=== PATIENT | female | born 1955 | race African-American/Black ===

== ENCOUNTER 2024-08-14 15:44 | Outpatient (CLI) | payer MEDICARE, SELFPAY ==
--- NOTE | ~2024-08-14 | MM_ITS ---
EXAMINATION: MM screening montse BI w deb HISTORY: Screening TECHNIQUE: Craniocaudal and mediolateral oblique 3-D tomosynthesis images were obtained and synthetic 2-D images were generated. CAD analysis was submitted and interpreted. COMPARISON: 09/14/2016 BREAST PARENCHYMAL COMPOSITION: Not dense: There are scattered areas of fibroglandular density. FINDINGS: There is a new cluster of indeterminate calcifications in the upper outer quadrant of the l eft breast, possibly skin calcifications. The right breast is stable without evidence for malignancy. There are bilateral inverted nipples. IMPRESSION: 1. New clustered indeterminate left breast calcifications. 2. Magnification views are recommended. BI-RADS Category 0: Incomplete: Needs additional imaging evaluation. Reviewed, dictated and finalized at location B. E INSPECTOR
== END 2024-08-14 15:45 | disposition home or self-care (01) ==
LOC: MICIMG 15:44
PROVIDERS: PCP Family Medicine; Visit Provider Obstetrics & Gynecology
DX: Z12.31 Encounter for screening mammogram for malignant neoplasm of breast (principal); R92.8 Other abnormal and inconclusive findings on diagnostic imaging of breast
CPT/HCPCS: 77063; 77067

== ENCOUNTER 2025-02-20 11:48 | Outpatient (CLI) | payer MEDICARE, SELFPAY ==
--- NOTE | 2025-02-20 12:13 | ECG_ITS ---
Test Date: 2025-02-20 12:20:16 Measurements Intervals [place] Rate: 56 P: 52 MI: 226 QRS: 44 QRSD: 84 T: 78 QT: 405 QTc: 393 Interpretive Statements SINUS BRADYCARDIA WITH SINUS ARRHYTHMIA WITH FIRST DEGREE AV BLOCK POSSIBLE LEFT ATRIAL ENLARGEMENT BORDERLINE ST-T WAVE ABNORMALITY- HIGH LATERAL LEADS BASELINE ARTIFACT- II, III, AVF BORDERLINE ECG No previous ECG available for comparison Electronically Signed On 02-20-2025 12:27:55 CDT by Waqas Prater D.O.
== END 2025-02-20 11:49 | disposition home or self-care (01) ==
PROVIDERS: PCP Family Medicine; Visit Provider Nurse Anesthetist, Certified Registered
DX: Z01.818 Encounter for other preprocedural examination (principal); I49.8 Other specified cardiac arrhythmias; I44.0 Atrioventricular block, first degree
CPT/HCPCS: 93005

== ENCOUNTER 2025-07-06 10:45 | Outpatient (CLI) | payer MEDICARE, MEDICAID, SELFPAY ==
--- NOTE | ~2025-07-06 | XR_ITS ---
EXAMINATION: XR shoulder RT min 2V, 07/06/2025 11:07 PACKER INSULATION HISTORY: RT SHOULDER PAIN; INJURY IN JANUARY COMPARISON: No comparisons available. Findings: No acute fracture or malalignment. No significant degenerative changes. Soft tissues unremarkable. Impression: No acute fracture or malalignment. Reviewed, dictated and finalized at location P. ER INSULATION Impression: No acute fracture or malalignment.
[2025-07-06 11:04] LABS: Hematocrit 38.0 % (37.0-47.0); Hemoglobin 12.2 g/dL (12.0-15.0); Immature Granulocyte Percent A 0.3 % (0-0.5); Lymphocytes Absolute Auto 2.38 K/mm3 (0.9-3.2); Mean Corpuscular HGB Conc 32.1 g/dl (32-36); Mean Corpuscular Hemoglobin 27.5 pg (26-34); Mean Corpuscular Volume 85.6 fl (80-100); Nucleated Red Blood Cells Absolute Auto 0.000 K/mm3 (0.0-0.012); Nucleated Red Blood Cells Perc 0.0 % (0.0-0.2); Platelet Count Result 276 k/mm3 (150-375); Red Blood Count 4.44 M/mm3 (4.2-5.4); White Blood Count 7.1 K/mm3 (4.5-10.0)
[2025-07-06 11:15] LABS: Hemoglobin A1C 5.4 % (<5.7)
[2025-07-06 11:21] LABS: Alanine Aminotransferase 14 U/L (6-35); Albumin Level 4.1 g/dL (3.5-5.1); Alkaline Phosphatase 60 U/L (38-126); Anion Gap 5 mmol/L (4-12); Aspartate Amino Transferase 24 U/L (14-36); Bilirubin,Total 0.5 mg/dL (0.2-1.3); Blood Urea Nitrogen 16 mg/dL (7-17); Calcium 9.2 mg/dL (8.4-10.2); Carbon Dioxide 29 mmol/L (22-30); Chloride 105 mmol/L (98-107); Cholesterol 208 mg/dL (0-200); Estimated Glomerular Filt Rate > 60; Glucose 83 mg/dL (65-110); HDL Direct 68 mg/dL; Potassium 4.1 mmol/L (3.4-5.0); Sodium 139 mmol/L (137-145); Total Protein 7.9 g/dL (6.3-8.2); Triglycerides 100 mg/dL (<150)
--- OUTSIDE RECORDS SUMMARY | 2025-07-06 11:31 | XMS_ITS | Clinical Summary ---
Author Organization [facility] Address Formerly [facility], [facility] [place] [address] Care Team Providers Care Construction Equipment Operator Name Role Phone None, Provider Primary Care Provider Unavaila ble Social History Tobacco Use Types Packs/Day Years Used Date Smoking Tobacco: Never Assessed Comments Unknown Sex and Gender Information Value Date Recorded Sex Assigned at Not on file Legal Sex Female 6:38 PM CDT Gender Identity Not on file Sexual Orientation Not on file Last Filed Vital Signs Vital Sign Reading Time Taken Comments Blood Pressure 125/59 05/07/2017 11:06 AM CDT Pulse 51 05/07/2017 11:06 AM CDT Temperature - - Respiratory Rate - - Oxygen Saturation - - Inhaled Oxygen Concentration - - Weight 114 kg (251 lb 6.1 oz) 05/07/2017 11:06 A M CDT Height 170.2 cm (5' 7) 05/07/2017 11:06 AM CDT Body Mass Index 39.37 05/07/2017 11:06 AM CDT Plan of Treatment Health Maintenance Due Date Last Done Comments Colorectal Cancer Screening Colonoscopy (10 Years) 1954 Hepatitis C 1972 DTaP, Tdap and Td Vaccines ( 1 - Tdap) 1973 Mammogram Screening 1994 Pneumococcal Vaccine: 50+ Years (1 of 1 - PCV) 2004 Zoster Vaccines (1 of 2) 2004 Annual Medicare Wellness Visit 2019 Dexa Scan (General) 2019 COVID-19 Vaccine (3 - 2024-2 6 season) 2025 02/24/2021, 02/03/2021 Influenza Adult (#1) 2025 RSV Immunization or 60+ Years (1 - 1-dose 75+ series) 2029 Hepatitis A Vaccines Aged Out No long er eligible based on patient's age to complete this topic Meningococcal B Vaccine Aged Out No l onger eligible based on patient's age to complete this topic Meningococcal Vaccine Aged Out No vincent zane eligible based on patient's age to complete this topic RSV Immunizations Under 20 Months Aged Out No longer eligible b ased on patient's age to complete this topic Insurance UHC MEDICARE Care Teams Construction Equipment Operator Relationship Specialty Start Date End Date None, Provider, PCP - General 06/21/21
--- OUTSIDE RECORDS SUMMARY | 2025-07-06 11:31 | XMS_ITS | Clinical Summary ---
Author Organization [facility] Address [address] [place] [address] Phone Care Team Providers Care Bone Drier Operator Name Role Phone Christina Ramirez MD Primary Care Provider [phone] Allergies Active Allergy Reactions Criticality Noted Date Comments Loratadine Dizziness Low 02/08/2021 Reaction: Dizziness, Pseudoephedrine Dizziness Low 02/08/2021 Reaction: Dizziness, Medications atorvastatin (LIPITOR) 20 mg tablet TAKE 1 TABLET BY MOUTH ONCE DAILY 11/27/2020 Active ergocalciferol (VITAMIN D2) 50,000 unit capsule TAKE 1 CAPSULE BY MOUTH ONCE A WEEK 11/27/2020 Active traMADoL (ULTRAM) 50 mg tablet 01/12/2021 Active tiZANidine (ZANAFLEX) 4 mg Tablet TAKE 1 TO 2 TABLETS BY MOUTH EVERY DAY AT BEDTIME 12/21/2020 Active nystatin (MYCOSTATIN) 100,000 unit/mL suspension SWISH AND SWALLOW 5ML BY MOUTH FOUR TIMES DAILY FOR 14 DAYS 12/08/2020 Active predniSONE (DELTASONE) 10 mg tablet TAKE 1 TABLET BY MOUTH NEEDED 12/13/2020 Active gabapentin (NEURONTIN) 300 mg capsule TAKE 1 CAPSULE BY MOUTH ONCE DAILY AT BEDTIME 12/06/2020 Active Active Problems Problem Noted Date Diagnosed Date Abnormality of left breast on screening mammogra m 02/15/2021 Social History Tobacco Use Types Packs/Day Years Used Date Smoking Tobacco: Former Cigarettes Q uit: 02/08/2010 Alcohol Use Standard Drinks/Week Comments Never 0 (1 standard drink = 0.6 oz pur e alcohol) Comments Unknown Sex and Gender Information Value Date Recorded Sex Assigned at Not on file Legal Sex Female 9:51 AM CDT Gender Identity Not on file Sexual Orientation Not on file Last Filed Vital Signs Vital Sign Reading Time Taken Comments Blood Pressure 141/87 02/08/2021 10:47 AM CDT Pulse 59 02/08/2021 10:47 AM CDT Temperature - - Respiratory Rate - - Oxygen Saturation - - Inhaled Oxygen Concentration - - Weight 115.2 kg (254 lb) 02/18/2021 9:00 AM CDT Height 170.2 cm (5' 7) 02/18/2021 9:00 AM CDT Body Mass Index 39.78 02/18/2021 9:00 AM CDT Plan of Treatment Health Maintenance Due Date Last Done Comments DTAP/TDAP/TD VACCINES (1 - Tdap) 1973 COLORECTAL SCREENING 1999 Colorectal Cancer Screening 1999 FIT-DNA Q 3 years 1999 FIT/FOBT Q 1 year 1999 Flex Sig/CT Colonography Q 5 years 1999 PNEUMOCOCCAL VACCINE 50+ YEA RS (1 of 1 - PCV) 2004 ZOSTER VACCINE (1 of 2) 2004 OSTEOPOROSIS SCREENING 2019 BREAST CANCER SCREENING 01/13/2022 01/13/2021, 12/31 INFLUENZA VACCINE (#1) 2025 RSV VACCINE (60+ or ) (1 - 1-dose 75+ series) 2029 Procedures Procedure Name Priority Date/Time Associated Diagnosis Comments MAMMO DIAG UNI LEFT 3D LENO W OR WO CAD Routine 01/13/2021 from Last 3 Months or Most Recently Relevant to Health Maintenance Results * MAMMO DIAG UNI LEFT 3D LENO W OR WO CAD (01/13/2021) Anatomical Region Laterality Modality Breast Left Mammography us Christina Ramirez MD MAMMO ORDERABLES Edited Result - Final from Last 3 Months or Most Recently Relevant to Health Maintenance Insurance [facility] [id number] Care Teams Bone Drier Operator Relationship Specialty Start Date End Date Christina Rmairez MD [address] [place] [address] PCP - General Family Practice 02/08/21
--- OUTSIDE RECORDS SUMMARY | 2025-07-06 11:31 | XMS_ITS | Clinical Summary ---
Author Organization [facility] Address [address] [place] [address] Care Team Providers Care Supervisor Data Processing Name Role Phone Christina Ramirez MD Primary Care Provider [phone] Allergies Active Allergy Reactions Criticality Noted Date Comments Loratadine Dizziness Reaction: Dizziness, Pseudoephedrine Dizziness Reaction: Dizziness, Medications ergocalciferol (VITAMIN D) 50,000 unit capsule Take 1 capsule (50,000 Units total) by mouth once a week States takes sometimes 1 Active gabapentin (NEURONTIN) 300 mg capsule Take 1 capsule (300 mg total) by mouth nightly as needed 1 Active rosuvastatin (CRESTOR) 5 mg tablet Take 1 tablet (5 mg total) by mouth 2 (two) times a week 2 Active tiZANidine (ZANAFLEX) 4 mg tablet TAKE 1 TO 2 TABLETS BY MOUTH EVERY DAY AT BEDTIME 1 Active traZODone (DESYREL) 100 mg tablet Take 1 tablet (100 mg total) by mouth nightly 2 Active Ozempic 0.25 mg or 0.5 mg(2 mg/1.5 mL) pen injector injection Inject 0.5 mg under the skin once a week 3 Active acetaminophen 500 mg capsuleIndicati ons:Pain Take 2 capsules (1,000 mg total) by mouth every 8 (eight) hours 90 tablet 3 Active aspirin 81 mg enteric coated tabletIndicatio ns:Deep Vein Thrombosis Prevention Take 1 tablet (81 mg total) by mouth 2 (two) times a day 60 tablet 3 Active Additional Information Patient taking differently:81 mg oralDaily, Indications: Deep Vein Thrombosis Prevention, Reported on 11/22/2022 triamcinolone (KENALOG) 0.1 % cream APPLY TOPICALLY TO RASH OF HANDS TWICE DAILY. 4 Active predniSONE (DELTASONE) 10 mg tablet TAKE 5 TABS BY MOUTH ONCE DAILY FOR 2 DAYS, THEN 4 TABS FOR 2 DAYS, THEN 3 TABS FOR 2 DAYS, THEN 2 TABS FOR 2 DAYS, THEN 1 TAB FOR 2 DAYS. 4 Active Active Problems Problem Noted Date Diagnosed Date Osteoarthritis of right hip, unspecified osteoarthritis type 10/09/2022 Class 3 severe obesity in adult 10/06/2022 Anxiety 10/06/2022 Asthma 10/06/2022 Primary osteoarthritis of right hip 09/13/2022 Overview (09/13/2022): Added automatically from request for surgery [id number] Chronic back pain 10/12/2021 Dobson's metatarsalgia 10/12/2021 Overweight 10/12/2021 Abnormality of left breast on screening mammogra m 02/15/2021 Degeneration of intervertebral disc of lumbar re gion 03/08/2017 Overview (03/08/2017): Lumbar DDD; Comments: MONTY 05/05/2016 - Assessment & Plan (07/24/2017 3:33 PM FORM TAMPING MACHINE OPERATOR): Patient is currently unemployed and is soon going to be without insurance. She cannot go to PT due to cost. She will be transitioning to IDPA soon. She has been approved from early SS withdrawal. She is also going to follow up with Dr. Baker, rheumatology in August. I started her on voltaren bid, flexeril at bedtime as needed and ultram prn for pain. She may need MRI in future if she is able to obtain IDPA. Assessment & Plan (03/08/2017 1:08 PM CDT): Will refer to Pain Management. Would like to try Neurontin at bedtime. Titrated up to 2 capsules at bedtime as tolerated. I also gave her a Lidoderm patch to try. If her insurance does not pay for this she may try [id number]. Mixed hyperlipidemia 03/08/2017 Assessment & Plan (07/24/2017 3:33 PM FORM TAMPING MACHINE OPERATOR): Renewed lipitor. Will be due for labs in August. Assessment & Plan (03/08/2017 12:14 PM CDT): Lipid abnormalities are improving with treatment. Continue lipitor Trigger ring finger 03/08/2017 Assessment & Plan (03/08/2017 12:23 PM CDT): Refer to ortho Obesity (BMI 30-39.9) 03/08/2017 Assessment & Plan (03/08/2017 1:07 PM CDT): Patient has had a gastric sleeve in the past. She has about weight loss pills. I talked to her about contrave . I did tell her that if she is on contrave that the tramadol effects may be block. I asked her to follow up in 3 months Immunizations Immunization Administration Dates Next Due Influenza, Unspecified 07/24/2017(Deferred: Chelsea ent Refused) Surgical History Surgery Date Site/Laterality Comments REDUCTION MAMMOPLASTY Breast Reduction SLEEVE GASTROPLASTY Gastric Sleeve VAGINAL HYSTERECTOMY Hysterectomy, vaginal FLUORO GUIDED ASPIRATION OR INJECTION LARGE JOINT RIGHT 10/25/2021 Right FLUORO GUIDED ASPIRATION OR INJECTION LARGE JOINT RIGHT 03/24/2022 Right Medical History Medical History Date Comments Anxiety disorder Anxiety Degeneration of intervertebr al disc of lumbar region Lumbar DDD; Comments: TWM - Obesity Prediabetes Family History Medical History Relation Name Comments Diabetes type II Daughter Diabetes me llitus type 2; Lymphoma Mother Lymphoma; Stroke Mother Stroke; Hypertension Other Family history of Hypertension; Leukemia Sister Leukemia; Anesthesia problems Neg Hx Relation Name Status Comments Daughter Father Mother Other Sister Social History Tobacco Use Types Packs/Day Years Used Date Smoking Tobacco: Former Cigarettes 1 974 - 2011 Passive Smoke Exposure: Past Smokeless Tobacco: Never Tobacco Cessation:Counseling Given: Not Answered OASIS D0700: Social Isolation Answer Da te Recorded Frequency of experiencing loneliness or isolatio n Never 11/08/2022 OASIS A1250: Transportation Answer Date Recorded Lack of Transportation (Medical) No 11/08/2022 Lack of Transportation (Non-Medical) No 11/08/2022 Patient Unable or Declines to Respond No 11/08/2022 OASIS B1300: Health Literacy Answer Elan e Recorded Frequency of needing help to read materials from doctor or pharmacy Rarely 11/08/2022 AUDIT-C Answer Date Recorded Q1: How often do you have a drink containing alcohol? Never 10/09/2022 Q2: How many drinks containi ng alcohol do you have on a typical day when you are drinking? Patient does not drink Q3: How often do you have si x or more drinks on one occasion? 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 Not on file Not on file Last Filed Vital Signs Vital Sign Reading Time Taken Comments Blood Pressure 124/76 11/08/2022 11:14 AM CDT Pulse 60 11/08/2022 11:14 AM CDT Temperature 36.2 C (97.1 F) 11/08/2022 11:14 AM CDT Respiratory Rate 18 11/08/2022 11:14 AM CDT Oxygen Saturation 96% 11/08/2022 11:14 AM CDT Inhaled Oxygen Concentration - - Weight 112.5 kg (248 lb) 10/17/2023 1:15 PM FORM TAMPING MACHINE OPERATOR Height 168.9 cm (5' 6.5) 10/17/2023 1:15 PM FORM TAMPING MACHINE OPERATOR Body Mass Index 39.43 10/17/2023 1:15 PM FORM TAMPING MACHINE OPERATOR Plan of Treatment Health Maintenance Due Date Last Done Comments Hepatitis C Screening 1955 Osteoporosis Screening-Bone Density Scan 1954 DTaP/Tdap/Td Vaccine (1 - Tdap) 1965 Hepatitis B Screening 1972 Pneumococcal vaccine 65+ (1 of 2 - PCV) 1973 Zoster Vaccine (1 of 2) 2004 Breast Cancer Screening-Mammogram 09/14/2017 017 Depression Screening 07/24/2018 07/24/2017, 03/08/20 17 Well Visit 65+ 2019 Fall Risk Assessment 10/10/2023 10/10/2022 Covid-19 Vaccine (4 - 2024-2 6 season) 2025 09/02/2021, 02/24/2021, 02/03/2021 Colon Cancer Screening-Colonoscopy 06/26/2026 06/26/2016, 06/26/2016, 06/26/2016 Colon Cancer Screening-CT Colonography Discontinued 06/26/2016, 06/26/2016, 06/26/2016 Colon Cancer Screening-DNA Stool Discontinued 06/26/2016, 06/26/2016, 06/26/2016 Colon Cancer Screening-FIT Discontinued 06/26, 06/26/2016, 06/26/2016 Colon Cancer Screening-Sigmoidoscopy Discontinue d 06/26/2016, 06/26/2016, 06/26/2016 Influenza Vaccine Discontinued Medical Devices Implanted Type Area Biomass Plant Manager Device Identifier Shelf Expiration Date Model / Serial / Lot [employer] G7 52mm Limit 3 Hole Hip E Hemisphere Offset Shell Acetabular [id number] - [id number] Implanted:Qty: 1 on 10/09/2022 by Brianne Larson MD at [facility] Right: Hip [employer] [id number] 04/26/2032 [id number] / / [id number] [employer] Trilogy 6.5mm 30mm Self Tap Acetabular Cortical Screw Bone [id number] - [id number] Implanted:Qty: 1 on 10/09/2022 by Brianne Larson MD at [facility] Right: Hip [employer] [id number] 06/29/2032 [id number] / / [id number] [employer] Trilogy 6.5mm 35mm Self Tap Screw Bone [id number] - [id number] Implanted:Qty: 1 on 10/09/2022 by Brianne Larson MD at [facility] Right: Hip [employer] [id number] 08/23/2032 [id number] / / [id number] [employer] G7 E1 42mm 2 Mobility S Liner Acetabular [id number] - [id number] Implanted:Qty: 1 on 10/09/2022 by Brianne Larson MD at [facility] Right: Hip [employer] [id number] 12/09/2030 [id number] / / [id number] [employer] Actis Collar Hip 4 High Offset Stem Femoral [id number] - [id number] Implanted:Qty: 1 on 10/09/2022 by Brianne Larson MD at [facility] Right: Hip [employer] [id number] 05/26/2032 [id number] / / [id number] [employer] 42mm 28mm Lumen Hip E Liner Acetabular Longevity Sterile Latex [id number] - [id number] Implanted:Qty: 1 on 10/09/2022 by Brianne Larson MD at [facility] Right: Hip [employer] [id number] 04/16/2027 [id number] / / [id number] [employer] Articul/Bin 28mm Cementless Hip +8.5mm /14 Taper Head Femoral Latex Free [id number] - [id number] Implanted:Qty: 1 on 10/09/2022 by Brianne Larson MD at [facility] Right: Hip [employer] 06/26/2027 [id number] / / [id number] Procedures Procedure Name Priority Date/Time Associated Diagnosis Comments MAMMOGRAPHY Routine 09/14/2016 COLONOSCOPY IMAGES 06/26/2016 from Last 3 Months or Most Recently Relevant to Health Maintenance Results * MAMMOGRAPHY (09/14/2016) Mammogram Normal us Historical Provider HEALTH MAINTENANCE Final Result * COLONOSCOPY IMAGES (06/26/2016) Anatomical Region Laterality Modality Other Narrative 06/26/2016 Ordered by an unspecified provider. us Historical Provider MD MAJOR PROCEDURE ORDERABLES F inal Result from Last 3 Months or Most Recently Relevant to Health Maintenance Insurance [facility] MDCR HMO REF UHC MEDICARE ADVANTAGE MEDICARE ADVANTAGE UHC MEDICARE ADVANTAGE Advance Directives For more information, please contact: [phone] * Full Code (Latest Code Status on File) Date Activated Date Inactivated Comments 10/09/2022 3:07 PM 10/10/2022 3:09 PM Care Teams Supervisor Data Processing Relationship Specialty Start Date End Date Christina Ramirez MD PCP - General 10/12/21
[2025-07-06 12:01] LABS: Thyroid Stimulating Hormone Reflex 2.970 uIU/mL (0.465-4.68)
== END 2025-07-06 10:46 | disposition home or self-care (01) ==
LOC: ANHLAB 10:48
PROVIDERS: PCP Student in an Organized Health Care Education/Training Program; Visit Provider Family Medicine
DX: M25.511 Pain in right shoulder (principal); E55.9 Vitamin D deficiency, unspecified; R53.83 Other fatigue; R73.03 Prediabetes; E78.2 Mixed hyperlipidemia
CPT/HCPCS: 36415; 73030; 80053; 80061; 82306; 83036; 84443; 85025